=== PATIENT | female | born 2000 | race Two or more races ===

== ENCOUNTER 2020-06-20 19:50 | Observation (INO) | payer OTHER ==
[~2020-06-20] VITALS: Ht 160 cm; Wt 72.1 kg
[2020-06-20 20:43] VITALS: BP 125/86
== END 2020-06-20 21:15 | disposition home or self-care (01) ==
LOC: MLD 19:50
PROVIDERS: ADMIT Obstetrics & Gynecology; ATTEND Obstetrics & Gynecology
DX: O62.9 Abnormality of forces of labor, unspecified (principal); Z3A.26 26 weeks gestation of pregnancy
CPT/HCPCS: 59025; 81000; G0378